=== PATIENT | male | born 1985 | race American Indian/Alaskan Native ===

== ENCOUNTER 2018-04-23 18:37 | Inpatient (IN) | payer OTHER ==
[2018-04-23] MEDS ORDERED: NACL 0.9% 1000 ML 1,000 ML IV ONE ×3 (19:25→23:29)
[2018-04-23] MEDS ORDERED: SUBLIMAZE IV ONE ×2 (19:25→21:41)
[2018-04-23] MEDS ORDERED: BENADRYL IV ONE (19:25)
[2018-04-23] MEDS ORDERED: ZOFRAN IV ONE (19:25)
[2018-04-23 20:23] LABS: Basophils % (Auto) 0.1 % (0.0-1.8); Hematocrit 49.1 % (35.5-45.6); Hemoglobin 16.6 gm/dl (11.8-15.2); Lymphocytes # (Auto) 0.7 K/mm3 (1.2-5.4); Lymphocytes % (Auto) 4.3 % (13.4-35.0); Mean Corpuscular HGB Conc 34 % (32-34); Mean Corpuscular Hemoglobin 30 pg (28-32); Mean Corpuscular Volume 89 fl (84-94); Monocytes # (Auto) 1.9 K/mm3 (0.0-0.8); Monocytes % (Auto) 12.2 % (0.0-7.3); Platelet Count 326 K/mm3 (140-440); Red Blood Count 5.52 M/mm3 (3.65-5.03); Red Cell Distribution Width 13.9 % (13.2-15.2)
--- NOTE | 2018-04-23 20:55 | Emergency Department Report ---
HPI - General Chief Complaint: Abdominal Pain Time Seen by Provider: 04/23/18 19:23 - HPI HPI: The patient is a 32-year-old male with a sniffing history of hepatitis C, who presents for evaluation of abdominal pain. The patient reports left lower quadrant abdominal pain for the past 2 days, crampy in quality, currently 9/10 in severity, exacerbated with movement. The patient denies fever, chills, night sweats, vomiting, diarrhea, blood in the stool, dark tarry stool, dysuria, hematuria, flank pain, genital discharge, inability to pass flatus. ED Past Medical Hx - Past Medical History Previous Medical History?: Yes Hx Hypertension: No Hx CVA: No Hx Heart Attack/AMI: No Hx Congestive Heart Failure: No Hx Diabetes: No Hx Deep Vein Thrombosis: No Hx Pulmonary Embolism: No Hx GERD: Yes Hx Liver Disease: Yes (hep c) Hx Renal Disease: No Hx of Cancer: No Hx Sickle Cell Disease: No Hx Arthritis: No Hx Headaches / Migraines: No Hx Seizures: No Hx Kidney Stones: No Hx Psychiatric Treatment: Yes (bi polar) Hx Asthma: No Hx COPD: No Hx Tuberculosis: No Hx Dementia: No Hx HIV: No - Surgical History Past Surgical History?: No Hx Coronary Stent: No Hx Open Heart Surgery: No Hx Pacemaker: No Hx Internal Defibrillator: No Hx Cholecystectomy: No Hx Appendectomy: No Hx Breast Surgery: No - Social History Smoking Status: Former Smoker Substance Use Type: Cocaine ED Review of Systems ROS: Stated complaint: N/V,ABD PAIN Other details as noted in HPI Constitutional: denies: fever ENT: denies: throat or neck pain Respiratory: denies: cough, shortness of breath Cardiovascular: denies: chest pain Endocrine: denies unexplained weight loss or gain Gastrointestinal: reports: abdominal pain, nausea Genitourinary: denies: dysuria Musculoskeletal: denies: leg swelling Skin: denies: rash Neurological: denies: headache Hematological/Lymphatic: denies: easy bleeding or easy bruising Psych: denies sadness or hopelessness Physical Exam - Physical Exam Vital Signs: Vital Signs 04/23/18 04/23/18 04/23/18 19:09 19:15 19:31 Temperature Pulse Rate 96 H 83 Respiratory 24 16 Rate Blood Pressure 138/91 138/91 Blood Pressure [Right] O2 Sat by Pulse 96 92 Oximetry 04/23/18 04/23/18 04/23/18 19:34 20:07 20:31 Temperature 98.7 F Pulse Rate 80 Respiratory 18 18 18 Rate Blood Pressure 138/91 Blood Pressure 138/91 [Right] O2 Sat by Pulse 100 Oximetry Physical Exam: General: well-nourished, well-developed, no acute distress Head: Normocephalic, atraumatic Eyes: normal sclera ENT: Mucous membranes are pink and moist Neck: trachea midline, neck supple, No neck stiffness, no cervical adenopathy Respiratory: Breath sounds equal bilaterally, no wheezing, rales, or rhonchi Cardio: S1 and S2 present, no murmurs, rubs, gallops, capillary refill is brisk Abdomen: Normoactive bowel sounds, soft abdomen, no rigidity, no guarding or rebound tenderness Chest WALL/Back: No tenderness to palpation of the chest wall, no CVA tenderness with percussion Musc: No pitting edema Skin: No rash Neuro: no facial drooping, normal speech Psych: Normal affect ED Course Vital Signs 04/23/18 04/23/18 04/23/18 19:09 19:15 19:31 Temperature Pulse Rate 96 H 83 Respiratory 24 16 Rate Blood Pressure 138/91 138/91 Blood Pressure [Right] O2 Sat by Pulse 96 92 Oximetry 04/23/18 04/23/18 04/23/18 19:34 20:07 20:31 Temperature 98.7 F Pulse Rate 80 Respiratory 18 18 18 Rate Blood Pressure 138/91 Blood Pressure 138/91 [Right] O2 Sat by Pulse 100 Oximetry ED Medical Decision Making - Lab Data Result diagrams: 04/23/18 20:06 04/23/18 20:06 - Medical Decision Making The patient was seen and examined by myself. The patient is placed on a senior application security consultant and continuous pulse ox. On initial evaluation, the patient was found to be in no distress. Evaluation orders are placed. IV access is established and the patient is given 1 L normal saline fluid bolus and Zofran for nausea, and IV analgesic for pain. Lab results revealed leukocytosis, WBC is 15, and otherwise labs were not concerning including normal LFTs. CT scan of the abdomen and pelvis is obtained. CT scan abdomen and pelvis reveals marked distention of the distal: And mild distention of the small bowel with air -fluid levels, concerning for illeus, as CT negative for identifiable obstruction. The on-call general surgeon Dr. Lubin is contacted. He agrees to consultation and recommends supportive care. The on-call hospitalist Dr. Sarmiento was contacted. She agrees to admit the patient. The admit order was placed. The patient is admitted in guarded condition. Critical care attestation.: If time is entered above; I have spent that time in minutes in the direct care of this critically ill patient, excluding procedure time. ED Disposition Clinical Impression: Acute abdominal pain in left lower quadrant, Ileus, unspecified Disposition: [id number] OP ADMIT IP TO THIS HOSP Is pt being admited?: Yes Does the pt Need Aspirin: Yes Condition: Fair Referrals: PRIMARY CARE, [Primary Care Provider] - 3-5 Days Time of Disposition: 20:58
[2018-04-23 21:11] LABS: Alanine Aminotransferase 146 units/L (7-56); Albumin 4.3 g/dL (3.9-5); BUN/Creatinine Ratio 21; Blood Urea Nitrogen 19 mg/dL (9-20); Calcium 9.6 mg/dL (8.4-10.2); Hemolysis Index 5; Lipase 13 units/L (13-60)
--- NOTE | 2018-04-23 21:34 | Ultrasound Report ---
FINAL REPORT EXAM: US ABDOMEN COMPLETE HISTORY: RUQ abd pain, hx cirrhosis TECHNIQUE: Grayscale the and color-flow imaging of the upper abdomen was performed. Comparison: None FINDINGS: Liver: There is a coarsened echotexture of the liver that corresponds to the patient's history of cirrhosis. Visualization detail of portions of the liver is limited by artifact. A mass within the liver cannot be excluded with this study. There appears to be mild intrahepatic biliary dilatation. The common bile duct is normal caliber (4.3 millimeters). Gallbladder: Moderately distended and appears to contain gallstones in the dependent portion of the gallbladder. The gallbladder wall is normal thickness (1.7 millimeters). There is no demonstration of pericholecystic fluid. Spleen: Normal size and echogenicity. Left kidney: Measures 11.4 centimeters in the maximal craniocaudal dimension. There is an approximately 1.7 centimeter probable cyst in the midpole. There is no demonstration of hydronephrosis, renal calculi or renal mass. Right kidney: Measures 10.5 centimeters in the maximal craniocaudal dimension. There is no demonstration of hydronephrosis, renal calculi or renal mass. Pancreas: Not well visualized due to artifact. There appears to be a right pleural fluid collection. IMPRESSION: 1. The pancreas is not well visualized. 2. Coarsened echotexture of the liver suggestive of hepatocellular disease. Visualization detail of portions of the liver is limited by artifact. A liver mass cannot be excluded with this study. 3. Appearance of mild intrahepatic biliary dilatation. 4. Gallstones within the gallbladder. No ultrasound evidence of acute cholecystitis. 5. Probable cyst left kidney. 6. Possible right pleural fluid collection.
--- NOTE | 2018-04-23 22:29 | Cat Scan Report ---
FINAL REPORT EXAM: CT ABDOMEN PELVIS W CON HISTORY: midline and llq abdominal pain TECHNIQUE: Following IV administration of 100 cc of Omnipaque 300 axial helical imaging was performed through the abdomen and pelvis with sagittal and coronal reformatted images obtained. Comparison: Ultrasound abdomen also performed today FINDINGS: The lung bases are without infiltrate, pneumothorax or pleural fluid collection. The heart is normal size. The liver, spleen, pancreas, kidneys an adrenal glands are normal in appearance. The gallbladder is moderately distended and unremarkable in appearance. There is marked distention of the colon (6.3 centimeters) which contains air, fluid and stool. There is a moderate amount of stool in the sigmoid colon and rectum. There is no evidence of bowel wall thickening, pneumatosis or pericolic inflammatory change. This is most suggestive of an ileus. There is mild distension of the distal small bowel with air-fluid levels which may also represent ileus. The stomach and remainder of the small bowel are normal caliber to decompressed. The appendix is normal caliber. There is no evidence of pneumoperitoneum or free fluid. The abdominal aorta is normal caliber. There are mildly prominent celiac axis and periaortic lymph nodes. The largest lymph node measures approximately 1.5 centimeters in size. The urinary bladder is moderately to markedly distended but otherwise unremarkable. The prostate gland is normal size. The bony structures are unremarkable in appearance. IMPRESSION: 1. Findings suggestive of ileus of the distal ileum and colon. 2. Moderate to marked distention of the urinary bladder. 3. Mildly prominent celiac axis and periaortic lymph nodes.
[2018-04-23 23:15] LABS: Bilirubin,Urine NEG (Negative); Blood,Urine NEG (Negative); Color,Urine Amber (Yellow); Mucus,Urine FEW /HPF; Protein,Urine <15 mg/dL mg/dL (Negative); WBC,Urine < 1.0 /HPF (0.0-6.0)
[2018-04-24] MEDS ORDERED: SODIUM CHLORIDE FLUSH SYRINGE 10 ML IV PRN (00:08)
[2018-04-24] MEDS ORDERED: TYLENOL PO PRN (00:08)
[2018-04-24] MEDS ORDERED: ZOFRAN IV PRN (00:08)
--- NOTE | 2018-04-24 00:11 | History and Physical Report ---
History of Present Illness Date of examination: 04/24/18 History of present illness: 32-year-old male with a history of substance abuse, hepatitis C, bipolar, ADHD comes to emergency room with complaints of nausea vomiting and abdominal pain. Pain is in the left lower quadrant, started 2 days ago, feels like a rock inside abdomen, intermittent every 15 seconds, and intensity 5/10, no radiation discharge had identified exacerbating or relieving factors. Patient is currently at anchor for suicide ideation Review of systems Constitutional: no weight loss, chills, fever Ears, eyes, nose, mouth and throat: no nasal congestion, no nasal discharge, no sinus pressure, no vision change, no red eye. Neck: No neck pain or rigidity. Cardiovascular: no chest pain, palpitations Respiratory: no cough, shortness of breath Gastrointestinal: no hematochezia Genitourinary : no frequency , no hematuria Musculoskeletal: no joint swelling or muscle ache Integumentary: no rash, no pruritis Neurological: no parathesias, no numbness, no focal weakness Endocrine: no cold or heat intolerance, no polyuria or polydipsia Hematologic/Lymphatic: no easy bruising, no easy bleeding, no gland swelling Allergic/Immunologic: no urticaria, no angioedema. PAST MEDICAL HISTORY: substance abuse, hepatitis C, bipolar, ADHD PAST SURGICAL HISTORY: None SOCIAL HISTORY: +alcohol, smoke 1 pack daily, and amphetamine abuse FAMILY HISTORY: Hypertension Medications and Allergies Allergies Allergy/AdvReac Type Severity Reaction Status Date / Time Penicillins Allergy Swelling Verified 04/24/18 00:30 Active Meds: Active Medications Sodium Chloride (Nacl 0.9% 1000 Ml) 1,000 mls @ 125 mls/hr IV ONCE ONE Stop: 04/24/18 07:28 Exam - Physical Exam Narrative exam: Gen. appearance: Patient lying in bed, no apparent distress HEENT: Normocephalic, atraumatic, pupils equally round and reactive to light, extraocular movement intact, and no sclericterus,. No JVD or thyromegaly or nodule,neck supple, no carotid bruit ,mucous membranes moist, no exudate or erythema Heart: S1, S2, regular rate and rhythm Lungs: Clear bilaterally, breathing comfortable Abdomen: Positive bowel sounds, tender left lower quadrant, nondistended, no organomegaly Extremity:no edema cyanosis, clubbing Skin: no rash, dry, warm Neuro: Oriented 3, cranial nerves II-12 intact, speech is fluent, motor and sensory intact - Constitutional Vitals: Temp Pulse Resp BP Pulse Ox 98.7 F 86 18 145/88 100 04/23/18 19:34 04/23/18 22:00 04/23/18 22:06 04/23/18 22:00 04/23/18 22:05 Results - Labs CBC & Chem 7: 04/23/18 20:06 04/23/18 20:06 Labs: Abnormal lab results 04/23/18 04/23/18 Range/Units 20:06 20:06 WBC 15.6 H (4.5-11.0) K/mm3 RBC 5.52 H (3.65-5.03) M/mm3 Hgb 16.6 H (11.8-15.2) gm/dl Hct 49.1 H (35.5-45.6) % Lymph % (Auto) 4.3 L (13.4-35.0) % [place] % (Auto) 12.2 H (0.0-7.3) % Lymph # 0.7 L (1.2-5.4) K/mm3 [place] # 1.9 H (0.0-0.8) K/mm3 Seg Neutrophils % 83.4 H (40.0-70.0) % Seg Neutrophils # 13.0 H (1.8-7.7) K/mm3 Chloride 94.3 L (98-107) mmol/L Glucose 147 H (75-100) mg/dL AST 91 H (5-40) units/L ALT 146 H (7-56) units/L Total Protein 8.4 H (6.3-8.2) g/dL - Imaging and Cardiology CT scan - abdomen: report reviewed CT scan - pelvis: report reviewed Assessment and Plan Assessment Ileus is likely secondary to methamphetamine withdrawal Suicide ideation Stress-induced leukocytosis Bipolar Hepatitis C ADHD Plan Admit medicine Start IV fluid, Percocet for pain, surgical consult Place on 1013 DVT prophylaxis
[2018-04-24] MEDS: NACL 0.9% 1000 ML 1,000 ML IV SCH ×2 (05:03→14:29)
[2018-04-24] MEDS ORDERED: LOVENOX SUB-Q SCH (10:00)
--- NOTE | 2018-04-24 10:29 | Consultation ---
History of Present Illness Consult date: 04/24/18 Reason for consult: abdominal pain Requesting physician: ANKIT LOPEZ Chief complaint: abdominal pain - History of present illness History of present illness: 32-year-old male presented to the emergency room last night with complaints of abdominal pain. He was transferred [facility] for recent suicidal ideation. Patient reports that about 5 days ago he was admitted to [facility]. After admission he reported abdominal pain that they try to manage conservatively. Ultimately, they ended up transferring him to the emergency department. General surgery was consult for further evaluation and management. Patient reports that he has not had a bowel movement in a number of days. Denies any nausea/vomiting. Denies any fevers or chills. Most of his pain is in the pelvic area but he does have a lot of pain in both flanks. Patient is hungry and would like to eat. Past History Past Medical History: hepatitis, other (substance abuse, hepatitis C, bipolar, ADHD ) Past Surgical History: No surgical history Social history: smoking, alcohol abuse, other (meth use) Family history: hypertension Medications and Allergies Allergies Allergy/AdvReac Type Severity Reaction Status Date / Time Penicillins Allergy Swelling Verified 04/24/18 00:30 Active Meds: Active Medications Acetaminophen (Tylenol) 650 mg PO Q4H PRN PRN Reason: Pain MILD(1-3)/Fever >100.5/CARTAGENA Enoxaparin Sodium (Lovenox) 40 mg SUB-Q QDAY@1000 KATHY Sodium Chloride (Nacl 0.9% 1000 Ml) 1,000 mls @ 125 mls/hr IV DIRECT KATHY Last Admin: 04/24/18 05:03 Dose: 125 mls/hr Mineral Oil (Fleet Mineral Oil) 133 ml [place] ONCE ONE Stop: 04/24/18 10:04 Ondansetron HCl (Zofran) 4 mg IV Q8H PRN PRN Reason: Nausea And Vomiting Oxycodone/Acetaminophen (Percocet 5/325) 1 tab PO Q6H PRN PRN Reason: Pain, Moderate (4-6) Senna (Senokot) 17.2 mg PO BID KATHY Sodium Chloride (Sodium Chloride Flush Syringe 10 Ml) 10 ml IV BID KATHY Sodium Chloride (Sodium Chloride Flush Syringe 10 Ml) 10 ml IV PRN PRN PRN Reason: LINE FLUSH Review of Systems - Constitutional weakness, no fever, no chills - Cardiovascular no chest pain, no rapid/irregular heart beat - Respiratory no cough, no shortness of breath - Gastrointestinal abdominal pain, constipation, dyspepsia/bloating, no nausea, no vomiting, no diarrhea, no hematemesis, no coffee ground emesis, no BRBPR, no melena, no hematochezia - Genitourinary flank pain, urinary retention - Integumentary no sores, no wounds - Psychiatric suicidal ideation, depression, sadness/tearfullness Exam Vital Signs Pulse Ox 96 04/23/18 19:09 - General physical appearance Positive: no distress, other (appears in mild discomfort.) - Eyes Positive: PERRL, normal occular movement - Respiratory Positive: normal expansion, normal respiratory effort, clear to auscultation - Cardiovascular Rhythm: regular - Abdomen Abdomen: Present: soft, tender (generalized. not an acute abdomen), bowel sounds normal. Absent: distended, guarding, rigid, surgical scars - Integumentary no rash, no growths, no abnormal pigmentation - Neurologic Neurologic: alert and oriented to time, place and person, motor strength and sensation are grossly intact - Psychiatric Psychiatric: appropriate mood/affect, cooperative Results - Labs 04/23/18 20:06 04/23/18 20:06 Abnormal lab results 04/23/18 04/23/18 Range/Units 20:06 20:06 WBC 15.6 H (4.5-11.0) K/mm3 RBC 5.52 H (3.65-5.03) M/mm3 Hgb 16.6 H (11.8-15.2) gm/dl Hct 49.1 H (35.5-45.6) % Lymph % (Auto) 4.3 L (13.4-35.0) % [place] % (Auto) 12.2 H (0.0-7.3) % Lymph # 0.7 L (1.2-5.4) K/mm3 [place] # 1.9 H (0.0-0.8) K/mm3 Seg Neutrophils % 83.4 H (40.0-70.0) % Seg Neutrophils # 13.0 H (1.8-7.7) K/mm3 Chloride 94.3 L (98-107) mmol/L Glucose 147 H (75-100) mg/dL AST 91 H (5-40) units/L ALT 146 H (7-56) units/L Total Protein 8.4 H (6.3-8.2) g/dL Diabetes panel 04/23/18 Range/Units 20:06 Sodium 140 (137-145) mmol/L Potassium 4.4 (3.6-5.0) mmol/L Chloride 94.3 L (98-107) mmol/L Carbon Dioxide 30 (22-30) mmol/L BUN 19 (9-20) mg/dL Creatinine 0.9 (0.8-1.5) mg/dL Glucose 147 H (75-100) mg/dL Calcium 9.6 (8.4-10.2) mg/dL AST 91 H (5-40) units/L ALT 146 H (7-56) units/L Alkaline Phosphatase 99 (35-129) units/L Total Protein 8.4 H (6.3-8.2) g/dL Albumin 4.3 (3.9-5) g/dL Calcium panel 04/23/18 Range/Units 20:06 Calcium 9.6 (8.4-10.2) mg/dL Albumin 4.3 (3.9-5) g/dL Pituitary panel 04/23/18 Range/Units 20:06 Sodium 140 (137-145) mmol/L Potassium 4.4 (3.6-5.0) mmol/L Chloride 94.3 L (98-107) mmol/L Carbon Dioxide 30 (22-30) mmol/L BUN 19 (9-20) mg/dL Creatinine 0.9 (0.8-1.5) mg/dL Glucose 147 H (75-100) mg/dL Calcium 9.6 (8.4-10.2) mg/dL Adrenal panel 04/23/18 Range/Units 20:06 Sodium 140 (137-145) mmol/L Potassium 4.4 (3.6-5.0) mmol/L Chloride 94.3 L (98-107) mmol/L Carbon Dioxide 30 (22-30) mmol/L BUN 19 (9-20) mg/dL Creatinine 0.9 (0.8-1.5) mg/dL Glucose 147 H (75-100) mg/dL Calcium 9.6 (8.4-10.2) mg/dL Total Bilirubin 0.30 (0.1-1.2) mg/dL AST 91 H (5-40) units/L ALT 146 H (7-56) units/L Alkaline Phosphatase 99 (35-129) units/L Total Protein 8.4 H (6.3-8.2) g/dL Albumin 4.3 (3.9-5) g/dL - Imaging CT scan - abdomen: report reviewed, image reviewed CT scan - pelvis: report reviewed, image reviewed Assessment and Plan - Patient Problems (1) Urinary retention Current Visit: Yes Status: Acute Plan to address problem: Pt stable. Patient has marked bladder distention on CT scan as well as fullness and tenderness on exam. Patient requires placement of Ga catheter to resolve the issue. This is been explained to the patient. Ga will need to stay in for at least 72 hours. Discussed all plans with nurse and Dr. Mason. Time=30min (2) Constipation Current Visit: Yes Status: Acute Plan to address problem: Pt stable. Pt has significant stool accumulation in recto-sigmoid area. Pt in need of clean out. As the proximal colon is dilated with fluid, I will begin with enemas and senna for today. After we begin to clear some of the stool out, then I will consider the need for additional PO meds. Will check KUB in AM. Ok to have clear liquid diet. (3) Dehydration Current Visit: Yes Status: Acute Plan to address problem: Pt is markedly dehdyrated which may account for some of the leukocytosis. Agree with IV hydration. May need further boluses. Labs in AM.
[2018-04-24] MEDS: PERCOCET 5/325 PO PRN ×3 (11:00→21:58)
[2018-04-24] MEDS ORDERED: FLEET MINERAL OIL PR ONE (12:00)
[2018-04-24] MEDS: SENOKOT PO SCH ×2 (12:12→21:58)
[2018-04-24] MEDS: LOVENOX SUB-Q SCH (12:12)
[2018-04-24] MEDS: SODIUM CHLORIDE FLUSH SYRINGE 10 ML IV SCH ×2 (12:13→22:00)
--- NOTE | 2018-04-24 12:23 | Progress Note ---
Assessment and Plan Assessment and plan: SIRS. Patient with leukocytosis and tachycardia on admission. No evidence of infection at this time. Leukocytosis. Etiology likely stress-induced and related to the dehydration. Continue to monitor CBC. Urinary retention. Patient has marked bladder distention on CT scan as well as fullness and tenderness on exam. Continue with Ga for now. Constipation. Continue with enemas and senna per surgery recommendations. Ileus. Etiology secondary to urinary retention and constipation. No jessica obstruction. Follow-up KUB in a.m. Surgery following. Suicidal ideation. Psychiatry consultation. Bipolar disorder. Per psychiatry. Hepatitis C. ADHD. History Interval history: No new issues overnight. Hospitalist Physical - Constitutional Vitals: Temp Pulse Resp BP Pulse Ox 98.4 F 82 16 110/60 98 04/24/18 08:03 04/24/18 08:03 04/24/18 08:03 04/24/18 08:03 04/24/18 08:03 General appearance: Present: no acute distress, well-nourished - EENT Eyes: Present: PERRL, EOM intact ENT: hearing intact, clear oral mucosa, dentition normal - Neck Neck: Present: supple, normal ROM - Respiratory Respiratory effort: normal Respiratory: bilateral: CTA - Cardiovascular Rhythm: regular Heart Sounds: Present: S1 & S2. Absent: gallop, rub - Extremities Extremities: no ischemia, No edema, Full ROM - Abdominal General gastrointestinal: soft, non-tender, non-distended, normal bowel sounds - Integumentary Integumentary: Present: clear, warm, dry - Neurologic Neurologic: CNII-XII intact, moves all extremities Results - Labs CBC & Chem 7: 04/23/18 20:06 04/23/18 20:06 Labs: Laboratory Last Values WBC 15.6 K/mm3 (4.5-11.0) H 04/23/18 20:06 RBC 5.52 M/mm3 (3.65-5.03) H 04/23/18 20:06 Hgb 16.6 gm/dl (11.8-15.2) H 04/23/18 20:06 Hct 49.1 % (35.5-45.6) H 04/23/18 20:06 MCV 89 fl (84-94) 04/23/18 20:06 MCH 30 pg (28-32) 04/23/18 20:06 MCHC 34 % (32-34) 04/23/18 20:06 RDW 13.9 % (13.2-15.2) 04/23/18 20:06 Plt Count 326 K/mm3 (140-440) 04/23/18 20:06 Lymph % (Auto) 4.3 % (13.4-35.0) L 04/23/18 20:06 [place] % (Auto) 12.2 % (0.0-7.3) H 04/23/18 20:06 Eos % (Auto) 0.0 % (0.0-4.3) 04/23/18 20:06 Baso % (Auto) 0.1 % (0.0-1.8) 04/23/18 20:06 Lymph # 0.7 K/mm3 (1.2-5.4) L 04/23/18 20:06 [place] # 1.9 K/mm3 (0.0-0.8) H 04/23/18 20:06 Eos # 0.0 K/mm3 (0.0-0.4) 04/23/18 20:06 Baso # 0.0 K/mm3 (0.0-0.1) 04/23/18 20:06 Seg Neutrophils % 83.4 % (40.0-70.0) H 04/23/18 20:06 Seg Neutrophils # 13.0 K/mm3 (1.8-7.7) H 04/23/18 20:06 Sodium 140 mmol/L (137-145) 04/23/18 20:06 Potassium 4.4 mmol/L (3.6-5.0) 04/23/18 20:06 Chloride 94.3 mmol/L (98-107) L 04/23/18 20:06 Carbon Dioxide 30 mmol/L (22-30) 04/23/18 20:06 Anion Gap 20 mmol/L 04/23/18 20:06 BUN 19 mg/dL (9-20) 04/23/18 20:06 Creatinine 0.9 mg/dL (0.8-1.5) 04/23/18 20:06 Estimated GFR > 60 ml/min 04/23/18 20:06 BUN/Creatinine Ratio 21 % 04/23/18 20:06 Glucose 147 mg/dL (75-100) H 04/23/18 20:06 Calcium 9.6 mg/dL (8.4-10.2) 04/23/18 20:06 Total Bilirubin 0.30 mg/dL (0.1-1.2) 04/23/18 20:06 AST 91 units/L (5-40) H 04/23/18 20:06 ALT 146 units/L (7-56) H 04/23/18 20:06 Alkaline Phosphatase 99 units/L (35-129) 04/23/18 20:06 Total Protein 8.4 g/dL (6.3-8.2) H 04/23/18 20:06 Albumin 4.3 g/dL (3.9-5) 04/23/18 20:06 Albumin/Globulin Ratio 1.0 % 04/23/18 20:06 Lipase 13 units/L (13-60) 04/23/18 20:06 Urine Color [place] (Yellow) 04/23/18 22:04 Urine Turbidity Clear (Clear) 04/23/18 22:04 Urine pH 6.0 (5.0-7.0) 04/23/18 22:04 Ur Specific [place] 1.024 (1.003-1.030) 04/23/18 22:04 Urine Protein <15 mg/dl mg/dL (Negative) 04/23/18 22:04 Urine Glucose (UA) Neg mg/dL (Negative) 04/23/18 22:04 Urine Ketones Neg mg/dL (Negative) 04/23/18 22:04 Urine Blood Neg (Negative) 04/23/18 22:04 Urine Nitrite Neg (Negative) 04/23/18 22:04 Urine Bilirubin Neg (Negative) 04/23/18 22:04 Urine Urobilinogen 2.0 mg/dL (<2.0) 04/23/18 22:04 Ur Leukocyte Esterase Neg (Negative) 04/23/18 22:04 Urine WBC (Auto) < 1.0 /HPF (0.0-6.0) 04/23/18 22:04 Urine RBC (Auto) 3.0 /HPF (0.0-6.0) 04/23/18 22:04 Urine Mucus Few /HPF 04/23/18 22:04 Plasma/Serum Alcohol < 0.01 % (0-0.07) 04/23/18 20:06
--- NOTE | 2018-04-25 09:09 | XRay Report ---
AP ABDOMEN: HISTORY: Reassess colon dilatation. The abdominal gas pattern is unremarkable. No masses or organomegaly is identified and there is no gross evidence of free air or fluid. No significant soft tissue calcifications are noted. IMPRESSION: Unremarkable abdomen. The borderline dilated and fluid-filled colon has apparently resolved since the CT performed 2 days ago.
--- NOTE | 2018-04-25 09:49 | Progress Note ---
Assessment and Plan Assessment and plan: Ileus. Etiology secondary to urinary retention and constipation. No jessica obstruction. Follow-up KUB Surgery following. SIRS. Patient with leukocytosis and tachycardia on admission. No evidence of infection at this time. Leukocytosis. Etiology likely stress-induced and related to the dehydration. Continue to monitor CBC. Urinary retention. Patient has marked bladder distention on CT scan as well as fullness and tenderness on exam. Continue with Ga for now. Constipation. Continue with enemas and senna per surgery recommendations. Suicidal ideation. Psychiatry consultation pending. Bipolar disorder. Per psychiatry. Hepatitis C. ADHD. History Interval history: No new issues overnight. Hospitalist Physical - Constitutional Vitals: Temp Pulse Resp BP Pulse Ox 98.9 F 64 18 101/55 94 04/25/18 05:42 04/25/18 05:42 04/25/18 05:42 04/25/18 05:42 04/25/18 05:42 General appearance: Present: no acute distress, well-nourished - EENT Eyes: Present: PERRL, EOM intact ENT: hearing intact, clear oral mucosa, dentition normal - Neck Neck: Present: supple, normal ROM - Respiratory Respiratory effort: normal Respiratory: bilateral: CTA - Cardiovascular Rhythm: regular Heart Sounds: Present: S1 & S2. Absent: gallop, rub - Extremities Extremities: no ischemia, No edema, Full ROM - Abdominal General gastrointestinal: soft, non-tender, non-distended, normal bowel sounds - Integumentary Integumentary: Present: clear, warm, dry - Neurologic Neurologic: CNII-XII intact, moves all extremities Results - Labs CBC & Chem 7: 04/23/18 20:06 04/23/18 20:06 Labs: Laboratory Last Values WBC 15.6 K/mm3 (4.5-11.0) H 04/23/18 20:06 RBC 5.52 M/mm3 (3.65-5.03) H 04/23/18 20:06 Hgb 16.6 gm/dl (11.8-15.2) H 04/23/18 20:06 Hct 49.1 % (35.5-45.6) H 04/23/18 20:06 MCV 89 fl (84-94) 04/23/18 20:06 MCH 30 pg (28-32) 04/23/18 20:06 MCHC 34 % (32-34) 04/23/18 20:06 RDW 13.9 % (13.2-15.2) 04/23/18 20:06 Plt Count 326 K/mm3 (140-440) 04/23/18 20:06 Lymph % (Auto) 4.3 % (13.4-35.0) L 04/23/18 20:06 [place] % (Auto) 12.2 % (0.0-7.3) H 04/23/18 20:06 Eos % (Auto) 0.0 % (0.0-4.3) 04/23/18 20:06 Baso % (Auto) 0.1 % (0.0-1.8) 04/23/18 20:06 Lymph # 0.7 K/mm3 (1.2-5.4) L 04/23/18 20:06 [place] # 1.9 K/mm3 (0.0-0.8) H 04/23/18 20:06 Eos # 0.0 K/mm3 (0.0-0.4) 04/23/18 20:06 Baso # 0.0 K/mm3 (0.0-0.1) 04/23/18 20:06 Seg Neutrophils % 83.4 % (40.0-70.0) H 04/23/18 20:06 Seg Neutrophils # 13.0 K/mm3 (1.8-7.7) H 04/23/18 20:06 Sodium 140 mmol/L (137-145) 04/23/18 20:06 Potassium 4.4 mmol/L (3.6-5.0) 04/23/18 20:06 Chloride 94.3 mmol/L (98-107) L 04/23/18 20:06 Carbon Dioxide 30 mmol/L (22-30) 04/23/18 20:06 Anion Gap 20 mmol/L 04/23/18 20:06 BUN 19 mg/dL (9-20) 04/23/18 20:06 Creatinine 0.9 mg/dL (0.8-1.5) 04/23/18 20:06 Estimated GFR > 60 ml/min 04/23/18 20:06 BUN/Creatinine Ratio 21 % 04/23/18 20:06 Glucose 147 mg/dL (75-100) H 04/23/18 20:06 Calcium 9.6 mg/dL (8.4-10.2) 04/23/18 20:06 Total Bilirubin 0.30 mg/dL (0.1-1.2) 04/23/18 20:06 AST 91 units/L (5-40) H 04/23/18 20:06 ALT 146 units/L (7-56) H 04/23/18 20:06 Alkaline Phosphatase 99 units/L (35-129) 04/23/18 20:06 Total Protein 8.4 g/dL (6.3-8.2) H 04/23/18 20:06 Albumin 4.3 g/dL (3.9-5) 04/23/18 20:06 Albumin/Globulin Ratio 1.0 % 04/23/18 20:06 Lipase 13 units/L (13-60) 04/23/18 20:06 Urine Color [place] (Yellow) 04/23/18 22:04 Urine Turbidity Clear (Clear) 04/23/18 22:04 Urine pH 6.0 (5.0-7.0) 04/23/18 22:04 Ur Specific [place] 1.024 (1.003-1.030) 04/23/18 22:04 Urine Protein <15 mg/dl mg/dL (Negative) 04/23/18 22:04 Urine Glucose (UA) Neg mg/dL (Negative) 04/23/18 22:04 Urine Ketones Neg mg/dL (Negative) 04/23/18 22:04 Urine Blood Neg (Negative) 04/23/18 22:04 Urine Nitrite Neg (Negative) 04/23/18 22:04 Urine Bilirubin Neg (Negative) 04/23/18 22:04 Urine Urobilinogen 2.0 mg/dL (<2.0) 04/23/18 22:04 Ur Leukocyte Esterase Neg (Negative) 04/23/18 22:04 Urine WBC (Auto) < 1.0 /HPF (0.0-6.0) 04/23/18 22:04 Urine RBC (Auto) 3.0 /HPF (0.0-6.0) 04/23/18 22:04 Urine Mucus Few /HPF 04/23/18 22:04 Plasma/Serum Alcohol < 0.01 % (0-0.07) 04/23/18 20:06
--- NOTE | 2018-04-25 10:15 | Progress Note ---
Assessment and Plan - Patient Problems (1) Urinary retention Current Visit: Yes Status: Acute Plan to address problem: Pt stable. Feels better after bladder drained. Needs to stay for at least 72 hours. Can try removal on Monday. Would document post-void residual after catheter removed. Please call with questions. time=10min (2) Constipation Current Visit: Yes Status: Acute Plan to address problem: Much improved after enema. cont senna. Abdominal pain essentially resolved. X- ray normal today. - advance to regular diet (3) Dehydration Current Visit: Yes Status: Acute Plan to address problem: Still reports thirst. Would continue IVF for 1 more day and encourage PO intake today. Subjective Date of service: 04/25/18 Patient Reports: Positive: feels better, pain is less, tolerating liquids well, bowel movement (had good BM after enema). Negative: nausea, vomiting Narrative: he is very hungry Objective Vital Signs - 12hr 04/24/18 04/25/18 22:58 05:42 Temperature 98.9 F Pulse Rate 64 Respiratory 20 18 Rate Blood Pressure 101/55 [Left] O2 Sat by Pulse 94 Oximetry - General physical appearance no distress, no pain, other (looks much better) - Respiratory normal expansion, normal respiratory effort - Abdomen soft, not tender (very minimal), not distended, not guarding, not rigid - Psychiatric oriented to time, oriented to person, oriented to place, speech is normal, memory intact - Labs 04/23/18 20:06 04/23/18 20:06 - Imaging Abdominal x-ray: report reviewed, image reviewed
[2018-04-25] MEDS: SENOKOT PO SCH ×2 (10:59→21:33)
[2018-04-25] MEDS: PERCOCET 5/325 PO PRN ×2 (10:59→18:07)
[2018-04-25] MEDS: LOVENOX SUB-Q SCH (11:00)
[2018-04-25] MEDS: SODIUM CHLORIDE FLUSH SYRINGE 10 ML IV SCH ×2 (11:00→21:33)
[2018-04-25 15:43] LABS: Basophils % (Auto) 0.5 % (0.0-1.8); Eosinophils # (Auto) 0.1 K/mm3 (0.0-0.4); Eosinophils % (Auto) 1.7 % (0.0-4.3); Hematocrit 39.7 % (35.5-45.6); Hemoglobin 13.5 gm/dl (11.8-15.2); Lymphocytes # (Auto) 1.9 K/mm3 (1.2-5.4); Lymphocytes % (Auto) 27.1 % (13.4-35.0); Mean Corpuscular HGB Conc 34 % (32-34); Mean Corpuscular Hemoglobin 30 pg (28-32); Mean Corpuscular Volume 89 fl (84-94); Monocytes # (Auto) 0.7 K/mm3 (0.0-0.8); Monocytes % (Auto) 10.1 % (0.0-7.3); Platelet Count 250 K/mm3 (140-440); Red Blood Count 4.47 M/mm3 (3.65-5.03)
[2018-04-25 15:55] LABS: BUN/Creatinine Ratio 16; Blood Urea Nitrogen 11 mg/dL (9-20); Calcium 8.7 mg/dL (8.4-10.2); Hemolysis Index 7
--- NOTE | 2018-04-25 17:15 | Consultation ---
History of Present Illness - Reason for Consult Consult date: 04/25/18 Reason for consult: Initial Psychiatric Evaluation - Chief Complaint Chief complaint: "I tried to kill myself" - History of Present Psychiatric Illness Patient is a 32-year-old male that presents to the emergency room from [facility] with complaints of nausea, vomiting, and abdominal pain. Pain is in the left lower quadrant x 2 days. He has a PMH of substance abuse , hepatitis C, bipolar, and ADHD. Patient was admitted to [facility] for a suicide attempt via overdose (Tylenol PM). Patient reports that his depression has been exacerbated by his family dynamics. Currently, patient is caring for his terminally ill mother and his older brother was recently sentence to 2 years in intermediate. He reports that he feels overwhelmed. He reports decrease sleep , decrease appetite, decrease energy, and being easily irritated/agitated. He continues to have suicidal ideations. He reports " next time I plan to hang myself or get a gun." In addition patient has intermittent paranoid thoughts. He denies A/VH's. Current Psychiatric Medications: Seroquel 300mg po QHS, Prozac 40mg po QAM, Buspar ( dose unknown). Past Psychiatric History: Bipolar (2012); More than 10 previous inpatient psychiatric hospitalizations; No outpatient psychiatrist; 7 to 8 previous suicide attempts ( overdosing and cutting self) Past Psychiatric Medication Trials: Suboxone- effective History of Trauma/Abuse: Patient denies sexual, physical, and mental abuse. Drug/Alcohol Abuse: Opioid (heroin)- 1 gram/daily, method-IV, last use- approx- 1 week ago, first use- 4 to 5 years ago; Methamphetamine- 1 gram/daily, method- IV use, approximately- 1 week ago, 1st use- 4 to 5 years Social History: High School Diploma; no source of income; poor support system; 1 son ( 13 years old); lives with mother. Family History: Mother- " she has mental issues" Medications and Allergies Allergies Allergy/AdvReac Type Severity Reaction Status Date / Time Penicillins Allergy Swelling Verified 04/24/18 00:30 Active Meds: Active Medications Acetaminophen (Tylenol) 650 mg PO Q4H PRN PRN Reason: Pain MILD(1-3)/Fever >100.5/CARTAGENA Enoxaparin Sodium (Lovenox) 40 mg SUB-Q QDAY@1000 KATHY Last Admin: 04/25/18 11:00 Dose: 40 mg Sodium Chloride (Nacl 0.9% 1000 Ml) 1,000 mls @ 125 mls/hr IV DIRECT [facility] Last Admin: 04/24/18 14:29 Dose: 125 mls/hr Ondansetron HCl (Zofran) 4 mg IV Q8H PRN PRN Reason: Nausea And Vomiting Oxycodone/Acetaminophen (Percocet 5/325) 1 tab PO Q6H PRN PRN Reason: Pain, Moderate (4-6) Last Admin: 04/25/18 10:59 Dose: 1 tab Senna (Senokot) 17.2 mg PO BID [facility] Last Admin: 04/25/18 10:59 Dose: 17.2 mg Sodium Chloride (Sodium Chloride Flush Syringe 10 Ml) 10 ml IV BID [facility] Last Admin: 04/25/18 11:00 Dose: 10 ml Sodium Chloride (Sodium Chloride Flush Syringe 10 Ml) 10 ml IV PRN PRN PRN Reason: LINE FLUSH Mental Status Exam - Vital signs Last Vital Signs Temp 98.7 F 04/25/18 16:23 Pulse 64 04/25/18 05:42 Resp 16 04/25/18 16:23 BP 116/79 04/25/18 16:22 Pulse Ox 94 04/25/18 05:42 - Exam Narrative exam: Mental Status Exam General Appearance: Causally Dressed-hospital gown Eye Contact: Intermittent Orientation: Alert and oriented x 4 ( person, place, time, and situation) Attitude/Behavior: Cooperative Sensorium: Clear Psychomotor & Musculoskeletal Activity: Laying in bed Mood: "Depressed" Affect: Congruent with mood Speech/Language: Normal rate and tone Thought Processes: Circumstantial Thought Content: Reality oriented; intermittent paranoid thoughts Perception: WNL-patient denies A/V/T hallucinations Concentration/Attention: Impaired Suicidal Ideations/Plan: + suicidal ideations to hang self or shoot self Homicidal Ideations/Plan: Patient denies HI's Judgment: Poor Insight: Poor Results Result Diagrams: 04/25/18 15:17 04/25/18 15:17 Abnormal lab results 04/25/18 04/25/18 Range/Units 15:17 15:17 Real % (Auto) 10.1 H (0.0-7.3) % Creatinine 0.7 L (0.8-1.5) mg/dL Glucose 110 H (75-100) mg/dL All other labs normal. Assessment and Plan Assessment and plan: Impression: PPHx Bipolar Disorder. Today patient presents cooperative and calm during the assessment. He endorses depressed mood, intermittent paranoia, and SI 's with plan to hang self or shoot himself. He denies HI's and A/VH's. Recommendation/Plan: 1. Continue 1013 with placement to inpatient psychiatric services. 2. Start Seroquel 300mg po QHS mood, Prozac 40mg po QAM depression/anxiety, Buspar 7.5mg po BID anxiety, and Ativan 0.5mg po Q daily PRN for anxiety/ agitation; Discussed metabolic side effects of Seroquel and increase suicidality of Prozac. 3. Will monitor mood, psychosis, sleep, appetite, compliance, and side effects. 09iu
[2018-04-25] MEDS: NACL 0.9% 1000 ML 1,000 ML IV SCH (18:08)
[2018-04-25] MEDS: BUSPAR PO SCH (22:19)
[2018-04-26] MEDS: NACL 0.9% 1000 ML 1,000 ML IV SCH (03:51)
[2018-04-26] MEDS: SENOKOT PO SCH ×2 (09:27→22:40)
[2018-04-26] MEDS: PROzac PO SCH (09:27)
[2018-04-26] MEDS: LOVENOX SUB-Q SCH (09:28)
[2018-04-26] MEDS: BUSPAR PO SCH ×2 (09:28→22:41)
[2018-04-26] MEDS: SODIUM CHLORIDE FLUSH SYRINGE 10 ML IV SCH ×2 (09:28→22:42)
--- NOTE | 2018-04-26 11:12 | Progress Note ---
Assessment and Plan Assessment and plan: Ileus. Etiology secondary to urinary retention and constipation. No jessica obstruction. Follow-up KUB Surgery following. SIRS. Patient with leukocytosis and tachycardia on admission. No evidence of infection at this time. Leukocytosis. Etiology likely stress-induced and related to the dehydration. Continue to monitor CBC. Urinary retention. Patient has marked bladder distention on CT scan as well as fullness and tenderness on exam. Continue with Ga for now and likely TDC NAM.. Constipation. Continue with enemas and senna per surgery recommendations. Suicidal ideation. Psychiatry consultation pending. Bipolar disorder. Per psychiatry. Hepatitis C. ADHD. Disposition. Anticipate discharge back to psych facility if bed available and patient voiding without any issues. History Interval history: No new issues overnight. Hospitalist Physical - Constitutional Vitals: Temp Pulse Resp BP Pulse Ox 98.1 F 45 L 18 97/57 97 04/26/18 06:00 04/26/18 06:00 04/26/18 06:00 04/26/18 06:00 04/26/18 09:28 General appearance: Present: no acute distress, well-nourished - EENT Eyes: Present: PERRL, EOM intact ENT: hearing intact, clear oral mucosa, dentition normal - Neck Neck: Present: supple, normal ROM - Respiratory Respiratory effort: normal Respiratory: bilateral: CTA - Cardiovascular Rhythm: regular Heart Sounds: Present: S1 & S2. Absent: gallop, rub - Extremities Extremities: no ischemia, No edema, Full ROM - Abdominal General gastrointestinal: soft, non-tender, non-distended, normal bowel sounds - Integumentary Integumentary: Present: clear, warm, dry - Neurologic Neurologic: CNII-XII intact, moves all extremities Results - Labs CBC & Chem 7: 04/25/18 15:17 04/25/18 15:17 Labs: Laboratory Last Values WBC 7.0 K/mm3 (4.5-11.0) 04/25/18 15:17 RBC 4.47 M/mm3 (3.65-5.03) 04/25/18 15:17 Hgb 13.5 gm/dl (11.8-15.2) D 04/25/18 15:17 Hct 39.7 % (35.5-45.6) D 04/25/18 15:17 MCV 89 fl (84-94) 04/25/18 15:17 MCH 30 pg (28-32) 04/25/18 15:17 MCHC 34 % (32-34) 04/25/18 15:17 RDW 14.0 % (13.2-15.2) 04/25/18 15:17 Plt Count 250 K/mm3 (140-440) 04/25/18 15:17 Lymph % (Auto) 27.1 % (13.4-35.0) 04/25/18 15:17 [place] % (Auto) 10.1 % (0.0-7.3) H 04/25/18 15:17 Eos % (Auto) 1.7 % (0.0-4.3) 04/25/18 15:17 Baso % (Auto) 0.5 % (0.0-1.8) 04/25/18 15:17 Lymph # 1.9 K/mm3 (1.2-5.4) 04/25/18 15:17 [place] # 0.7 K/mm3 (0.0-0.8) 04/25/18 15:17 Eos # 0.1 K/mm3 (0.0-0.4) 04/25/18 15:17 Baso # 0.0 K/mm3 (0.0-0.1) 04/25/18 15:17 Seg Neutrophils % 60.6 % (40.0-70.0) 04/25/18 15:17 Seg Neutrophils # 4.2 K/mm3 (1.8-7.7) 04/25/18 15:17 Sodium 138 mmol/L (137-145) 04/25/18 15:17 Potassium 4.2 mmol/L (3.6-5.0) 04/25/18 15:17 Chloride 100.6 mmol/L (98-107) 04/25/18 15:17 Carbon Dioxide 28 mmol/L (22-30) 04/25/18 15:17 Anion Gap 14 mmol/L 04/25/18 15:17 BUN 11 mg/dL (9-20) 04/25/18 15:17 Creatinine 0.7 mg/dL (0.8-1.5) L 04/25/18 15:17 Estimated GFR > 60 ml/min 04/25/18 15:17 BUN/Creatinine Ratio 16 % 04/25/18 15:17 Glucose 110 mg/dL (75-100) H 04/25/18 15:17 Calcium 8.7 mg/dL (8.4-10.2) 04/25/18 15:17 Total Bilirubin 0.30 mg/dL (0.1-1.2) 04/23/18 20:06 AST 91 units/L (5-40) H 04/23/18 20:06 ALT 146 units/L (7-56) H 04/23/18 20:06 Alkaline Phosphatase 99 units/L (35-129) 04/23/18 20:06 Total Protein 8.4 g/dL (6.3-8.2) H 04/23/18 20:06 Albumin 4.3 g/dL (3.9-5) 04/23/18 20:06 Albumin/Globulin Ratio 1.0 % 04/23/18 20:06 Lipase 13 units/L (13-60) 04/23/18 20:06 Urine Color [place] (Yellow) 04/23/18 22:04 Urine Turbidity Clear (Clear) 04/23/18 22:04 Urine pH 6.0 (5.0-7.0) 04/23/18 22:04 Ur Specific [place] 1.024 (1.003-1.030) 04/23/18 22:04 Urine Protein <15 mg/dl mg/dL (Negative) 04/23/18 22:04 Urine Glucose (UA) Neg mg/dL (Negative) 04/23/18 22:04 Urine Ketones Neg mg/dL (Negative) 04/23/18 22:04 Urine Blood Neg (Negative) 04/23/18 22:04 Urine Nitrite Neg (Negative) 04/23/18 22:04 Urine Bilirubin Neg (Negative) 04/23/18 22:04 Urine Urobilinogen 2.0 mg/dL (<2.0) 04/23/18 22:04 Ur Leukocyte Esterase Neg (Negative) 04/23/18 22:04 Urine WBC (Auto) < 1.0 /HPF (0.0-6.0) 04/23/18 22:04 Urine RBC (Auto) 3.0 /HPF (0.0-6.0) 04/23/18 22:04 Urine Mucus Few /HPF 04/23/18 22:04 Plasma/Serum Alcohol < 0.01 % (0-0.07) 04/23/18 20:06
--- NOTE | 2018-04-26 12:14 | Progress Note ---
Subjective - Reason for Consult Consult date: 04/26/18 Reason for consult: Psychiatry Follow-up - Chief Complaint Chief complaint: "I want to " 32-year-old male that presents to the emergency room from [facility] with complaints of nausea, vomiting, and abdominal pain. He has a PMH of substance abuse, hepatitis C, bipolar, and ADHD. Patient was admitted to [facility] for a suicide attempt via overdose (Tylenol PM). Today the patient is calm but guarded during the assessment. He stated that he have no reason to want to live because his mother is very sick. He stated that he struggles with knowing that he cannot continue to care for his mother. He continues to endorse SI's, but cannot confirm or deny a suicide plan. He denies HI's and AVH's. He denies any side effects of his medications. Mental Status Exam - Vital signs Last Vital Signs Temp 98.1 F 04/26/18 06:00 Pulse 45 L 04/26/18 06:00 Resp 18 04/26/18 06:00 BP 97/57 04/26/18 06:00 Pulse Ox 97 04/26/18 09:28 - Exam Narrative exam: MSE: Appearance: calm Behavior: regular eye contact Speech: regular rate and tone Mood: guarded, withdrawn Affect: flat Thought Process: circumstantial Thought Content: denies HI's and AVH's Motor Activity: ambulatory Cognition: A/O x 3 Insight: variable Judgment: poor Assessment and Plan Impression: Hx of Bipolar DO. Today the patient is calm, but guarded during the assessment. He endorses SI's. Recommendation/Plan: Continue 1013 with placement to inpatient psy services when medically clear. Continue Seroquel 300 mg PO HS for mood, Prozac 40 mg PO daily for depression/anxiety, and Buspar 7.5 mg PO BID for anxiety. Discussed metabolic side effects of Seroquel with the patient. Also, discussed possible suicidality/medication induced polo with patient reference Prozac.
[2018-04-26] MEDS: PERCOCET 5/325 PO PRN (19:53)
[2018-04-27] MEDS ORDERED: NACL 0.9% IR ONE (09:55)
[2018-04-27] MEDS: BUSPAR PO SCH ×2 (09:58→21:01)
[2018-04-27] MEDS: PROzac PO SCH (09:59)
[2018-04-27] MEDS: LOVENOX SUB-Q SCH (10:01)
[2018-04-27] MEDS: SENOKOT PO SCH ×2 (10:01→21:01)
[2018-04-27] MEDS: SODIUM CHLORIDE FLUSH SYRINGE 10 ML IV SCH ×2 (10:02→21:03)
--- NOTE | 2018-04-27 10:19 | Progress Note ---
Assessment and Plan Assessment and plan: Ileus. Resolved. Surgery following. SIRS. Patient with leukocytosis and tachycardia on admission. No evidence of infection at this time. Leukocytosis. Resolved. Urinary retention. Patient has marked bladder distention on CT scan as well as fullness and tenderness on exam. We will most likely discontinue Ga per surgery. Constipation. Continue with enemas and senna per surgery recommendations. Suicidal ideation. Await inpatient psych placement. Bipolar disorder. Per psychiatry. Hepatitis C. ADHD. Disposition. Anticipate discharge back to psych facility if bed available and patient voiding without any issues. History Interval history: No new issues overnight. Hospitalist Physical - Constitutional Vitals: Temp Pulse Resp BP Pulse Ox 98.0 F 47 L 16 106/57 97 04/27/18 05:36 04/27/18 05:36 04/27/18 05:36 04/27/18 05:36 04/27/18 05:36 General appearance: Present: no acute distress, well-nourished - EENT Eyes: Present: PERRL, EOM intact ENT: hearing intact, clear oral mucosa, dentition normal - Neck Neck: Present: supple, normal ROM - Respiratory Respiratory effort: normal Respiratory: bilateral: CTA - Cardiovascular Rhythm: regular Heart Sounds: Present: S1 & S2. Absent: gallop, rub - Extremities Extremities: no ischemia, No edema, Full ROM - Abdominal General gastrointestinal: soft, non-tender, non-distended, normal bowel sounds - Integumentary Integumentary: Present: clear, warm, dry - Neurologic Neurologic: CNII-XII intact, moves all extremities Results - Labs CBC & Chem 7: 04/25/18 15:17 04/25/18 15:17 Labs: Laboratory Last Values WBC 7.0 K/mm3 (4.5-11.0) 04/25/18 15:17 RBC 4.47 M/mm3 (3.65-5.03) 04/25/18 15:17 Hgb 13.5 gm/dl (11.8-15.2) D 04/25/18 15:17 Hct 39.7 % (35.5-45.6) D 04/25/18 15:17 MCV 89 fl (84-94) 04/25/18 15:17 MCH 30 pg (28-32) 04/25/18 15:17 MCHC 34 % (32-34) 04/25/18 15:17 RDW 14.0 % (13.2-15.2) 04/25/18 15:17 Plt Count 250 K/mm3 (140-440) 04/25/18 15:17 Lymph % (Auto) 27.1 % (13.4-35.0) 04/25/18 15:17 [place] % (Auto) 10.1 % (0.0-7.3) H 04/25/18 15:17 Eos % (Auto) 1.7 % (0.0-4.3) 04/25/18 15:17 Baso % (Auto) 0.5 % (0.0-1.8) 04/25/18 15:17 Lymph # 1.9 K/mm3 (1.2-5.4) 04/25/18 15:17 [place] # 0.7 K/mm3 (0.0-0.8) 04/25/18 15:17 Eos # 0.1 K/mm3 (0.0-0.4) 04/25/18 15:17 Baso # 0.0 K/mm3 (0.0-0.1) 04/25/18 15:17 Seg Neutrophils % 60.6 % (40.0-70.0) 04/25/18 15:17 Seg Neutrophils # 4.2 K/mm3 (1.8-7.7) 04/25/18 15:17 Sodium 138 mmol/L (137-145) 04/25/18 15:17 Potassium 4.2 mmol/L (3.6-5.0) 04/25/18 15:17 Chloride 100.6 mmol/L (98-107) 04/25/18 15:17 Carbon Dioxide 28 mmol/L (22-30) 04/25/18 15:17 Anion Gap 14 mmol/L 04/25/18 15:17 BUN 11 mg/dL (9-20) 04/25/18 15:17 Creatinine 0.7 mg/dL (0.8-1.5) L 04/25/18 15:17 Estimated GFR > 60 ml/min 04/25/18 15:17 BUN/Creatinine Ratio 16 % 04/25/18 15:17 Glucose 110 mg/dL (75-100) H 09/19/18 15:17 Calcium 8.7 mg/dL (8.4-10.2) 04/25/18 15:17 Total Bilirubin 0.30 mg/dL (0.1-1.2) 04/23/18 20:06 AST 91 units/L (5-40) H 04/23/18 20:06 ALT 146 units/L (7-56) H 04/23/18 20:06 Alkaline Phosphatase 99 units/L (35-129) 04/23/18 20:06 Total Protein 8.4 g/dL (6.3-8.2) H 04/23/18 20:06 Albumin 4.3 g/dL (3.9-5) 04/23/18 20:06 Albumin/Globulin Ratio 1.0 % 04/23/18 20:06 Lipase 13 units/L (13-60) 04/23/18 20:06 Urine Color [place] (Yellow) 04/23/18 22:04 Urine Turbidity Clear (Clear) 04/23/18 22:04 Urine pH 6.0 (5.0-7.0) 04/23/18 22:04 Ur Specific [place] 1.024 (1.003-1.030) 04/23/18 22:04 Urine Protein <15 mg/dl mg/dL (Negative) 04/23/18 22:04 Urine Glucose (UA) Neg mg/dL (Negative) 04/23/18 22:04 Urine Ketones Neg mg/dL (Negative) 04/23/18 22:04 Urine Blood Neg (Negative) 04/23/18 22:04 Urine Nitrite Neg (Negative) 04/23/18 22:04 Urine Bilirubin Neg (Negative) 04/23/18 22:04 Urine Urobilinogen 2.0 mg/dL (<2.0) 04/23/18 22:04 Ur Leukocyte Esterase Neg (Negative) 04/23/18 22:04 Urine WBC (Auto) < 1.0 /HPF (0.0-6.0) 04/23/18 22:04 Urine RBC (Auto) 3.0 /HPF (0.0-6.0) 04/23/18 22:04 Urine Mucus Few /HPF 04/23/18 22:04 Plasma/Serum Alcohol < 0.01 % (0-0.07) 04/23/18 20:06
[2018-04-27] MEDS: PERCOCET 5/325 PO PRN ×2 (10:46→21:01)
--- NOTE | 2018-04-27 13:34 | Progress Note ---
Subjective - Reason for Consult Consult date: 04/27/18 Reason for consult: Psychiatry Follow-up - Chief Complaint Chief complaint: "I am still sucidal" 32-year-old male that presents to the emergency room from [facility] with complaints of nausea, vomiting, and abdominal pain. He has a PMH of substance abuse, hepatitis C, bipolar, and ADHD. Patient was admitted to [facility] for a suicide attempt via overdose (Tylenol PM). Today the patient is calm and cooperative during the assessment. He stated that he is still feeling suicidal and cannot confirm or deny a suicide plan when asked. He stated, "I wish I get better soon." He denies HI's and AVH's. He denies any side effects of his medications. Mental Status Exam - Vital signs Last Vital Signs Temp 98.0 F 04/27/18 05:36 Pulse 47 L 04/27/18 05:36 Resp 16 04/27/18 05:36 BP 106/57 04/27/18 05:36 Pulse Ox 97 04/27/18 05:36 - Exam Narrative exam: MSE: Appearance: calm, cooperative Behavior: regular eye contact Speech: regular rate and tone Mood: withdrawn Affect: flat Thought Process: circumstantial Thought Content: denies HI's and AVH's Motor Activity: ambulatory Cognition: A/O x 3 Insight: variable Judgment: poor Assessment and Plan Impression: Hx of Bipolar DO. Today the patient is calm and cooperative during the assessment. He endorses SI's. Recommendation/Plan: Continue 1013 with placement to inpatient psy services. Continue Seroquel 300 mg PO HS for mood, Prozac 40 mg PO daily for depression/ anxiety, and Buspar 7.5 mg PO BID for anxiety. Discussed metabolic side effects of Seroquel with the patient. Also, discussed possible suicidality/medication induced polo with patient reference Prozac with the patient.
--- NOTE | 2018-04-27 13:55 | Progress Note ---
Assessment and Plan - Patient Problems (1) Urinary retention Current Visit: Yes Status: Resolved Plan to address problem: Issues resolved. Did well with post void residual after catheter was removed. No further eval or treatment needed. Ok to be discharged from my perspective. Will sign off. PLease call with questions. Time=10min (2) Constipation Current Visit: Yes Status: Resolved Plan to address problem: Would recommend usual things for good bowel regimen - hydration, fiber, balanced diet, etc. Can use a laxative prn. (3) Dehydration Current Visit: Yes Status: Resolved Plan to address problem: resolved. Subjective Date of service: 04/27/18 Patient Reports: Positive: feels better, tolerating a regular diet, bowel movement. Negative: nausea, vomiting Objective Vital Signs - 12hr 04/27/18 05:36 Temperature 98.0 F Pulse Rate 47 L Respiratory 16 Rate Blood Pressure 106/57 O2 Sat by Pulse 97 Oximetry - General physical appearance no distress, no pain, other (looks good) - Respiratory normal expansion, normal respiratory effort - Abdomen soft, tender (minimal in suprapubic area), not distended, not guarding, not rigid - Labs 04/25/18 15:17 04/25/18 15:17
[2018-04-28] MEDS: PROzac PO SCH (09:36)
[2018-04-28] MEDS: BUSPAR PO SCH ×2 (09:36→22:20)
[2018-04-28] MEDS: SENOKOT PO SCH ×2 (09:36→22:20)
[2018-04-28] MEDS: LOVENOX SUB-Q SCH (09:37)
[2018-04-28] MEDS: PERCOCET 5/325 PO PRN ×3 (09:37→22:21)
--- NOTE | 2018-04-28 11:20 | Progress Note ---
Assessment and Plan Assessment and plan: Ileus. Resolved. Surgery following. SIRS. Patient with leukocytosis and tachycardia on admission. No evidence of infection at this time. Leukocytosis. Resolved. Urinary retention. Patient has marked bladder distention on CT scan as well as fullness and tenderness on exam. Did well with post void residual after catheter was removed. No further eval or treatment needed. Constipation. Continue with enemas and senna per surgery recommendations. Suicidal ideation. Await inpatient psych placement. Bipolar disorder. Per psychiatry. Hepatitis C. ADHD. Disposition. Patient is medically clear for discharge. Anticipate discharge back to psych facility if bed available History Interval history: No new issues overnight. Hospitalist Physical - Constitutional Vitals: Temp Pulse Resp BP Pulse Ox 98.8 F 65 18 106/63 97 04/27/18 21:13 04/27/18 22:00 04/27/18 22:00 04/27/18 21:13 04/27/18 22:00 General appearance: Present: no acute distress, well-nourished - EENT Eyes: Present: PERRL, EOM intact ENT: hearing intact, clear oral mucosa, dentition normal - Neck Neck: Present: supple, normal ROM - Respiratory Respiratory effort: normal Respiratory: bilateral: CTA - Cardiovascular Rhythm: regular Heart Sounds: Present: S1 & S2. Absent: gallop, rub - Extremities Extremities: no ischemia, No edema, Full ROM - Abdominal General gastrointestinal: soft, non-tender, non-distended, normal bowel sounds - Integumentary Integumentary: Present: clear, warm, dry - Neurologic Neurologic: CNII-XII intact, moves all extremities Results - Labs CBC & Chem 7: 04/25/18 15:17 04/25/18 15:17 Labs: Laboratory Last Values WBC 7.0 K/mm3 (4.5-11.0) 04/25/18 15:17 RBC 4.47 M/mm3 (3.65-5.03) 04/25/18 15:17 Hgb 13.5 gm/dl (11.8-15.2) D 04/25/18 15:17 Hct 39.7 % (35.5-45.6) D 04/25/18 15:17 MCV 89 fl (84-94) 04/25/18 15:17 MCH 30 pg (28-32) 04/25/18 15:17 MCHC 34 % (32-34) 04/25/18 15:17 RDW 14.0 % (13.2-15.2) 04/25/18 15:17 Plt Count 250 K/mm3 (140-440) 04/25/18 15:17 Lymph % (Auto) 27.1 % (13.4-35.0) 04/25/18 15:17 [place] % (Auto) 10.1 % (0.0-7.3) H 04/25/18 15:17 Eos % (Auto) 1.7 % (0.0-4.3) 04/25/18 15:17 Baso % (Auto) 0.5 % (0.0-1.8) 04/25/18 15:17 Lymph # 1.9 K/mm3 (1.2-5.4) 04/25/18 15:17 [place] # 0.7 K/mm3 (0.0-0.8) 04/25/18 15:17 Eos # 0.1 K/mm3 (0.0-0.4) 04/25/18 15:17 Baso # 0.0 K/mm3 (0.0-0.1) 04/25/18 15:17 Seg Neutrophils % 60.6 % (40.0-70.0) 04/25/18 15:17 Seg Neutrophils # 4.2 K/mm3 (1.8-7.7) 04/25/18 15:17 Sodium 138 mmol/L (137-145) 04/25/18 15:17 Potassium 4.2 mmol/L (3.6-5.0) 04/25/18 15:17 Chloride 100.6 mmol/L (98-107) 04/25/18 15:17 Carbon Dioxide 28 mmol/L (22-30) 04/25/18 15:17 Anion Gap 14 mmol/L 04/25/18 15:17 BUN 11 mg/dL (9-20) 04/25/18 15:17 Creatinine 0.7 mg/dL (0.8-1.5) L 04/25/18 15:17 Estimated GFR > 60 ml/min 04/25/18 15:17 BUN/Creatinine Ratio 16 % 04/25/18 15:17 Glucose 110 mg/dL (75-100) H 04/25/18 15:17 Calcium 8.7 mg/dL (8.4-10.2) 04/25/18 15:17 Total Bilirubin 0.30 mg/dL (0.1-1.2) 04/23/18 20:06 AST 91 units/L (5-40) H 04/23/18 20:06 ALT 146 units/L (7-56) H 04/23/18 20:06 Alkaline Phosphatase 99 units/L (35-129) 04/23/18 20:06 Total Protein 8.4 g/dL (6.3-8.2) H 04/23/18 20:06 Albumin 4.3 g/dL (3.9-5) 04/23/18 20:06 Albumin/Globulin Ratio 1.0 % 04/23/18 20:06 Lipase 13 units/L (13-60) 04/23/18 20:06 Urine Color [place] (Yellow) 04/23/18 22:04 Urine Turbidity Clear (Clear) 04/23/18 22:04 Urine pH 6.0 (5.0-7.0) 04/23/18 22:04 Ur Specific [place] 1.024 (1.003-1.030) 04/23/18 22:04 Urine Protein <15 mg/dl mg/dL (Negative) 04/23/18 22:04 Urine Glucose (UA) Neg mg/dL (Negative) 04/23/18 22:04 Urine Ketones Neg mg/dL (Negative) 04/23/18 22:04 Urine Blood Neg (Negative) 04/23/18 22:04 Urine Nitrite Neg (Negative) 04/23/18 22:04 Urine Bilirubin Neg (Negative) 04/23/18 22:04 Urine Urobilinogen 2.0 mg/dL (<2.0) 04/23/18 22:04 Ur Leukocyte Esterase Neg (Negative) 04/23/18 22:04 Urine WBC (Auto) < 1.0 /HPF (0.0-6.0) 04/23/18 22:04 Urine RBC (Auto) 3.0 /HPF (0.0-6.0) 04/23/18 22:04 Urine Mucus Few /HPF 04/23/18 22:04 Plasma/Serum Alcohol < 0.01 % (0-0.07) 04/23/18 20:06
[2018-04-28] MEDS: SODIUM CHLORIDE FLUSH SYRINGE 10 ML IV SCH ×2 (13:20→22:30)
--- NOTE | 2018-04-28 19:57 | Progress Note ---
Subjective - Reason for Consult Consult date: 04/28/18 Reason for consult: follow up - Chief Complaint Chief complaint: "I just want to get my stuff." 32-year-old male that presents to the emergency room from [facility] with complaints of nausea, vomiting, and abdominal pain. He has a PMH of substance abuse, hepatitis C, bipolar, and ADHD. Patient was admitted to [facility] for a suicide attempt via overdose (Tylenol PM). He reports suicidal ideation and is frustrated about his belongings being at [place]. He is focused on getting his belongings. He will not discuss details of suicidal thoughts. MSE: Appearance: calm, cooperative Behavior: regular eye contact Speech: regular rate and tone Mood: withdrawn Affect: flat Thought Process: tangential Thought Content: suicidal ideation. no HI. no AVH Motor Activity: ambulatory Cognition: A/O x 3 Insight: variable Judgment: poor Assessment and Plan Impression: Hx of Bipolar DO. Today the patient is calm and cooperative during the assessment. He endorses SI. Recommendation/Plan: Continue 1013 with placement to inpatient psy services. Continue Seroquel 300 mg PO HS for mood, Prozac 40 mg PO daily for depression/ anxiety, and Buspar 7.5 mg PO BID for anxiety. Mental Status Exam - Vital signs Last Vital Signs Temp 98.8 F 04/28/18 17:45 Pulse 59 L 04/28/18 17:44 Resp 17 04/28/18 17:45 BP 117/79 04/28/18 17:45 Pulse Ox 98 04/28/18 17:44
[2018-04-29] MEDS: ATIVAN PO PRN (00:08)
[2018-04-29] MEDS: PERCOCET 5/325 PO PRN ×3 (08:37→21:22)
[2018-04-29] MEDS: BUSPAR PO SCH ×2 (11:18→21:22)
[2018-04-29] MEDS: SENOKOT PO SCH ×2 (11:19→21:22)
[2018-04-29] MEDS: PROzac PO SCH (11:19)
[2018-04-29] MEDS: LOVENOX SUB-Q SCH (11:20)
[2018-04-29] MEDS: SODIUM CHLORIDE FLUSH SYRINGE 10 ML IV SCH ×3 (15:02→21:24)
--- NOTE | 2018-04-29 18:13 | Progress Note ---
Subjective - Reason for Consult Consult date: 04/29/18 Reason for consult: follow up - Chief Complaint Chief complaint: "It's depressing as f___ in here." 32-year-old male that presents to the emergency room from [facility] with complaints of nausea, vomiting, and abdominal pain. He has a PMH of substance abuse, hepatitis C, bipolar, and ADHD. Patient was admitted to [facility] for a suicide attempt via overdose (Tylenol PM). He continues to report suicidal ideation and is frustrated about his belongings being at [place]. He is focused on getting his belongings. He will not discuss details of suicidal thoughts. He is tearful. MSE: Appearance: calm, cooperative Behavior: regular eye contact Speech: regular rate and tone Mood: withdrawn Affect: flat Thought Process: tangential Thought Content: suicidal ideation. no HI. no AVH Motor Activity: ambulatory Cognition: A/O x 3 Insight: variable Judgment: poor Assessment and Plan Impression: Hx of Bipolar DO. Today the patient is calm and cooperative during the assessment. He endorses SI. Recommendation/Plan: Continue 1013 with placement to inpatient psy services. Continue Seroquel 300 mg PO HS for mood, Prozac 40 mg PO daily for depression/ anxiety, and Buspar 7.5 mg PO BID for anxiety. Mental Status Exam - Vital signs Last Vital Signs Temp 97.9 F 04/29/18 17:18 Pulse 61 04/28/18 21:33 Resp 19 04/29/18 17:18 BP 114/73 04/29/18 17:18 Pulse Ox 97 04/28/18 21:33
[2018-04-30] MEDS: ATIVAN PO PRN (02:24)
[2018-04-30] MEDS: PERCOCET 5/325 PO PRN ×3 (08:00→21:44)
--- NOTE | 2018-04-30 09:21 | Progress Note ---
Assessment and Plan Assessment and plan: Ileus. Resolved. Surgery following. SIRS. Patient with leukocytosis and tachycardia on admission. No evidence of infection at this time. Leukocytosis. Resolved. Urinary retention. Patient has marked bladder distention on CT scan as well as fullness and tenderness on exam. Did well with post void residual after catheter was removed. No further eval or treatment needed. Constipation. Continue with enemas and senna per surgery recommendations. Suicidal ideation. Await inpatient psych placement. Bipolar disorder. Per psychiatry. Hepatitis C. ADHD. Disposition. Patient is medically clear for discharge. Anticipate discharge back to psych facility if bed available History Interval history: No new issues overnight. Hospitalist Physical - Constitutional Vitals: Temp Pulse Resp BP Pulse Ox 98.6 F 71 16 109/73 97 04/30/18 07:32 04/30/18 07:43 04/30/18 07:43 04/30/18 07:32 04/30/18 07:32 General appearance: Present: no acute distress, well-nourished - EENT Eyes: Present: PERRL, EOM intact ENT: hearing intact, clear oral mucosa, dentition normal - Neck Neck: Present: supple, normal ROM - Respiratory Respiratory effort: normal Respiratory: bilateral: CTA - Cardiovascular Rhythm: regular Heart Sounds: Present: S1 & S2. Absent: gallop, rub - Extremities Extremities: no ischemia, No edema, Full ROM - Abdominal General gastrointestinal: soft, non-tender, non-distended, normal bowel sounds - Integumentary Integumentary: Present: clear, warm, dry - Neurologic Neurologic: CNII-XII intact, moves all extremities Results - Labs CBC & Chem 7: 04/25/18 15:17 04/25/18 15:17 Labs: Laboratory Last Values WBC 7.0 K/mm3 (4.5-11.0) 04/25/18 15:17 RBC 4.47 M/mm3 (3.65-5.03) 04/25/18 15:17 Hgb 13.5 gm/dl (11.8-15.2) D 04/25/18 15:17 Hct 39.7 % (35.5-45.6) D 04/25/18 15:17 MCV 89 fl (84-94) 04/25/18 15:17 MCH 30 pg (28-32) 04/25/18 15:17 MCHC 34 % (32-34) 04/25/18 15:17 RDW 14.0 % (13.2-15.2) 04/25/18 15:17 Plt Count 250 K/mm3 (140-440) 04/25/18 15:17 Lymph % (Auto) 27.1 % (13.4-35.0) 04/25/18 15:17 [place] % (Auto) 10.1 % (0.0-7.3) H 04/25/18 15:17 Eos % (Auto) 1.7 % (0.0-4.3) 04/25/18 15:17 Baso % (Auto) 0.5 % (0.0-1.8) 04/25/18 15:17 Lymph # 1.9 K/mm3 (1.2-5.4) 04/25/18 15:17 [place] # 0.7 K/mm3 (0.0-0.8) 04/25/18 15:17 Eos # 0.1 K/mm3 (0.0-0.4) 04/25/18 15:17 Baso # 0.0 K/mm3 (0.0-0.1) 04/25/18 15:17 Seg Neutrophils % 60.6 % (40.0-70.0) 04/25/18 15:17 Seg Neutrophils # 4.2 K/mm3 (1.8-7.7) 04/25/18 15:17 Sodium 138 mmol/L (137-145) 04/25/18 15:17 Potassium 4.2 mmol/L (3.6-5.0) 04/25/18 15:17 Chloride 100.6 mmol/L (98-107) 04/25/18 15:17 Carbon Dioxide 28 mmol/L (22-30) 04/25/18 15:17 Anion Gap 14 mmol/L 04/25/18 15:17 BUN 11 mg/dL (9-20) 04/25/18 15:17 Creatinine 0.7 mg/dL (0.8-1.5) L 04/25/18 15:17 Estimated GFR > 60 ml/min 04/25/18 15:17 BUN/Creatinine Ratio 16 % 04/25/18 15:17 Glucose 110 mg/dL (75-100) H 04/25/18 15:17 Calcium 8.7 mg/dL (8.4-10.2) 04/25/18 15:17 Total Bilirubin 0.30 mg/dL (0.1-1.2) 04/23/18 20:06 AST 91 units/L (5-40) H 04/23/18 20:06 ALT 146 units/L (7-56) H 04/23/18 20:06 Alkaline Phosphatase 99 units/L (35-129) 04/23/18 20:06 Total Protein 8.4 g/dL (6.3-8.2) H 04/23/18 20:06 Albumin 4.3 g/dL (3.9-5) 04/23/18 20:06 Albumin/Globulin Ratio 1.0 % 04/23/18 20:06 Lipase 13 units/L (13-60) 04/23/18 20:06 Urine Color [place] (Yellow) 04/23/18 22:04 Urine Turbidity Clear (Clear) 04/23/18 22:04 Urine pH 6.0 (5.0-7.0) 04/23/18 22:04 Ur Specific [place] 1.024 (1.003-1.030) 04/23/18 22:04 Urine Protein <15 mg/dl mg/dL (Negative) 04/23/18 22:04 Urine Glucose (UA) Neg mg/dL (Negative) 04/23/18 22:04 Urine Ketones Neg mg/dL (Negative) 04/23/18 22:04 Urine Blood Neg (Negative) 04/23/18 22:04 Urine Nitrite Neg (Negative) 04/23/18 22:04 Urine Bilirubin Neg (Negative) 04/23/18 22:04 Urine Urobilinogen 2.0 mg/dL (<2.0) 04/23/18 22:04 Ur Leukocyte Esterase Neg (Negative) 04/23/18 22:04 Urine WBC (Auto) < 1.0 /HPF (0.0-6.0) 04/23/18 22:04 Urine RBC (Auto) 3.0 /HPF (0.0-6.0) 04/23/18 22:04 Urine Mucus Few /HPF 04/23/18 22:04 Plasma/Serum Alcohol < 0.01 % (0-0.07) 04/23/18 20:06
[2018-04-30] MEDS: BUSPAR PO SCH ×2 (09:55→21:44)
[2018-04-30] MEDS: PROzac PO SCH (09:56)
[2018-04-30] MEDS: SENOKOT PO SCH ×2 (10:09→21:43)
[2018-04-30] MEDS: SODIUM CHLORIDE FLUSH SYRINGE 10 ML IV SCH ×2 (10:09→21:44)
[2018-04-30] MEDS: LOVENOX SUB-Q SCH (10:09)
--- NOTE | 2018-04-30 11:57 | Progress Note ---
Subjective - Reason for Consult Consult date: 04/30/18 Reason for consult: Psychiatry Follow-up - Chief Complaint Chief complaint: "I just want to leave" 32-year-old male that presents to the emergency room from [facility] with complaints of nausea, vomiting, and abdominal pain. He has a PMH of substance abuse, hepatitis C, bipolar, and ADHD. Patient was admitted to [facility] for a suicide attempt via overdose (Tylenol PM). Today the patient is calm and cooperative during the assessment. He stated that he could have made better choices (overdose) prior to his admission to [facility]. He denies SI/HI's and AVH's. He denies any side effects of he medications. Mental Status Exam - Vital signs Last Vital Signs Temp 98.6 F 04/30/18 07:32 Pulse 71 04/30/18 07:43 Resp 16 04/30/18 07:43 BP 109/73 04/30/18 07:32 Pulse Ox 97 04/30/18 07:32 - Exam Narrative exam: MSE: Appearance: calm, cooperative Behavior: regular eye contact Speech: regular rate and tone Mood: "okay" Affect: congruent to mood Thought Process: circumstantial Thought Content: denies SI/HI's and AVH's Motor Activity: ambulatory Cognition: A/O x 3 Insight: fair Judgment: fair Assessment and Plan Impression: Hx of Bipolar DO. Today the patient is calm and cooperative during the assessment. This is the patient's first time not endorsing SI's. Recommendation/Plan: Reevaluate 1013. Continue Seroquel 300 mg PO HS for mood, Prozac 40 mg PO daily for depression/anxiety, and Buspar 7.5 mg PO BID for anxiety. Discussed metabolic side effects of Seroquel with the patient. Also, discussed possible suicidality/medication induced polo with patient reference Prozac with the patient.
[2018-05-01 07:10] LABS: Bilirubin,Urine NEG (Negative); Blood,Urine NEG (Negative); Color,Urine Yellow (Yellow); Protein,Urine <15 mg/dL mg/dL (Negative); Urobilinogen,Urine < 2.0 mg/dL (<2.0); WBC,Urine < 1.0 /HPF (0.0-6.0)
[2018-05-01 07:12] LABS: Amphetamine Screen,Urine PRESUMPTIVE NEGATIVE; Benzodiazepines Screen,Urine PRESUMPTIVE NEGATIVE; Cannabinoid Screen,Urine PRESUMPTIVE NEGATIVE; Cocaine Screen,Urine PRESUMPTIVE NEGATIVE; Methadone Screen,Urine PRESUMPTIVE NEGATIVE; Opiate Screen,Urine PRESUMPTIVE NEGATIVE
[2018-05-01] MEDS: PERCOCET 5/325 PO PRN (07:16)
--- NOTE | 2018-05-01 07:35 | Progress Note ---
Assessment and Plan Assessment and plan: Ileus. Resolved. Surgery following. SIRS. Patient with leukocytosis and tachycardia on admission. No evidence of infection at this time. Leukocytosis. Resolved. Urinary retention. Patient has marked bladder distention on CT scan as well as fullness and tenderness on exam. Did well with post void residual after catheter was removed. No further eval or treatment needed. Constipation. Continue with enemas and senna per surgery recommendations. Suicidal ideation. Await inpatient psych placement. Bipolar disorder. Per psychiatry. Hepatitis C. ADHD. Disposition. Patient is medically clear for discharge. Anticipate discharge back to psych facility if bed available Hospitalist Physical - Constitutional Vitals: Temp Pulse Resp BP Pulse Ox 98.0 F 67 17 98/53 97 05/01/18 05:40 05/01/18 05:40 05/01/18 07:16 05/01/18 05:40 05/01/18 05:40 General appearance: Present: no acute distress, well-nourished Results - Labs CBC & Chem 7: 04/25/18 15:17 04/25/18 15:17 Labs: Laboratory Last Values WBC 7.0 K/mm3 (4.5-11.0) 04/25/18 15:17 RBC 4.47 M/mm3 (3.65-5.03) 04/25/18 15:17 Hgb 13.5 gm/dl (11.8-15.2) D 04/25/18 15:17 Hct 39.7 % (35.5-45.6) D 04/25/18 15:17 MCV 89 fl (84-94) 04/25/18 15:17 MCH 30 pg (28-32) 04/25/18 15:17 MCHC 34 % (32-34) 04/25/18 15:17 RDW 14.0 % (13.2-15.2) 04/25/18 15:17 Plt Count 250 K/mm3 (140-440) 04/25/18 15:17 Lymph % (Auto) 27.1 % (13.4-35.0) 04/25/18 15:17 [place] % (Auto) 10.1 % (0.0-7.3) H 04/25/18 15:17 Eos % (Auto) 1.7 % (0.0-4.3) 04/25/18 15:17 Baso % (Auto) 0.5 % (0.0-1.8) 04/25/18 15:17 Lymph # 1.9 K/mm3 (1.2-5.4) 04/25/18 15:17 [place] # 0.7 K/mm3 (0.0-0.8) 04/25/18 15:17 Eos # 0.1 K/mm3 (0.0-0.4) 04/25/18 15:17 Baso # 0.0 K/mm3 (0.0-0.1) 04/25/18 15:17 Seg Neutrophils % 60.6 % (40.0-70.0) 04/25/18 15:17 Seg Neutrophils # 4.2 K/mm3 (1.8-7.7) 04/25/18 15:17 Sodium 138 mmol/L (137-145) 04/25/18 15:17 Potassium 4.2 mmol/L (3.6-5.0) 04/25/18 15:17 Chloride 100.6 mmol/L (98-107) 04/25/18 15:17 Carbon Dioxide 28 mmol/L (22-30) 04/25/18 15:17 Anion Gap 14 mmol/L 04/25/18 15:17 BUN 11 mg/dL (9-20) 04/25/18 15:17 Creatinine 0.7 mg/dL (0.8-1.5) L 04/25/18 15:17 Estimated GFR > 60 ml/min 04/25/18 15:17 BUN/Creatinine Ratio 16 % 04/25/18 15:17 Glucose 110 mg/dL (75-100) H 04/25/18 15:17 Calcium 8.7 mg/dL (8.4-10.2) 04/25/18 15:17 Total Bilirubin 0.30 mg/dL (0.1-1.2) 04/23/18 20:06 AST 91 units/L (5-40) H 04/23/18 20:06 ALT 146 units/L (7-56) H 04/23/18 20:06 Alkaline Phosphatase 99 units/L (35-129) 04/23/18 20:06 Total Protein 8.4 g/dL (6.3-8.2) H 04/23/18 20:06 Albumin 4.3 g/dL (3.9-5) 04/23/18 20:06 Albumin/Globulin Ratio 1.0 % 04/23/18 20:06 Lipase 13 units/L (13-60) 04/23/18 20:06 Urine Color Yellow (Yellow) 05/01/18 01:02 Urine Turbidity Clear (Clear) 05/01/18 01:02 Urine pH 6.0 (5.0-7.0) 05/01/18 01:02 Ur Specific [place] 1.020 (1.003-1.030) 05/01/18 01:02 Urine Protein <15 mg/dl mg/dL (Negative) 05/01/18 01:02 Urine Glucose (UA) Neg mg/dL (Negative) 05/01/18 01:02 Urine Ketones Neg mg/dL (Negative) 05/01/18 01:02 Urine Blood Neg (Negative) 05/01/18 01:02 Urine Nitrite Neg (Negative) 05/01/18 01:02 Urine Bilirubin Neg (Negative) 05/01/18 01:02 Urine Urobilinogen < 2.0 mg/dL (<2.0) 05/01/18 01:02 Ur Leukocyte Esterase Neg (Negative) 05/01/18 01:02 Urine WBC (Auto) < 1.0 /HPF (0.0-6.0) 05/01/18 01:02 Urine RBC (Auto) 1.0 /HPF (0.0-6.0) 05/01/18 01:02 Urine Mucus Few /HPF 04/23/18 22:04 Urine Opiates Screen Presumptive negative 05/01/18 00:55 Urine Methadone Screen Presumptive negative 05/01/18 00:55 Ur Barbiturates Screen Presumptive negative 05/01/18 00:55 Ur Phencyclidine Scrn Presumptive negative 05/01/18 00:55 Ur Amphetamines Screen Presumptive negative 05/01/18 00:55 U Benzodiazepines Scrn Presumptive negative 05/01/18 00:55 Urine Cocaine Screen Presumptive negative 05/01/18 00:55 U Marijuana (THC) Screen Presumptive negative 05/01/18 00:55 Drugs of Abuse Note Disclamer 05/01/18 00:55 Plasma/Serum Alcohol < 0.01 % (0-0.07) 04/23/18 20:06
[2018-05-01 08:35] LABS: Basophils # (Auto) 0.1 K/mm3 (0.0-0.1); Basophils % (Auto) 0.5 % (0.0-1.8); Eosinophils # (Auto) 0.1 K/mm3 (0.0-0.4); Eosinophils % (Auto) 0.8 % (0.0-4.3); Hematocrit 48.7 % (35.5-45.6); Hemoglobin 16.3 gm/dl (11.8-15.2); Lymphocytes # (Auto) 2.2 K/mm3 (1.2-5.4); Lymphocytes % (Auto) 17.8 % (13.4-35.0); Mean Corpuscular HGB Conc 34 % (32-34); Mean Corpuscular Hemoglobin 30 pg (28-32); Mean Corpuscular Volume 89 fl (84-94); Monocytes # (Auto) 0.8 K/mm3 (0.0-0.8); Monocytes % (Auto) 6.3 % (0.0-7.3); Platelet Count 392 K/mm3 (140-440); Red Blood Count 5.48 M/mm3 (3.65-5.03)
[2018-05-01 09:01] LABS: Alanine Aminotransferase 105 units/L (7-56); Albumin 4.8 g/dL (3.9-5); BUN/Creatinine Ratio 17; Blood Urea Nitrogen 15 mg/dL (9-20); Calcium 10.3 mg/dL (8.4-10.2); Hemolysis Index 32
[2018-05-01] MEDS: BUSPAR PO SCH (10:06)
[2018-05-01] MEDS: PROzac PO SCH (10:33)
[2018-05-01] MEDS: LOVENOX SUB-Q SCH (10:33)
[2018-05-01] MEDS: ATIVAN PO PRN (10:33)
[2018-05-01] MEDS: SENOKOT PO SCH (10:33)
[2018-05-01] MEDS: SODIUM CHLORIDE FLUSH SYRINGE 10 ML IV SCH (10:36)
--- NOTE | 2018-05-01 13:04 | Progress Note ---
Subjective - Reason for Consult Consult date: 05/01/18 Reason for consult: Psychiatry Follow-up - Chief Complaint Chief complaint: "I don't know what's wrong with me" 32-year-old male that presents to the emergency room from [facility] with complaints of nausea, vomiting, and abdominal pain. He has a PMH of substance abuse, hepatitis C, bipolar, and ADHD. Patient was admitted to [facility] for a suicide attempt via overdose (Tylenol PM). Today the patient is calm and cooperative, but withdrawn during the assessment. He was asked about being suicidal, he stated, "I don't know." He stated that he don't know what's wrong with him "mentally." He denies HI's and AVH's. He denies any side effects of his medications. Mental Status Exam - Vital signs Last Vital Signs Temp 98.0 F 05/01/18 05:40 Pulse 67 05/01/18 05:40 Resp 16 05/01/18 10:00 BP 98/53 05/01/18 05:40 Pulse Ox 97 05/01/18 05:40 - Exam Narrative exam: MSE: Appearance: calm, cooperative Behavior: regular eye contact Speech: regular rate and tone Mood: withdrawn Affect: congruent to mood Thought Process: circumstantial Thought Content: denies HI's and AVH's Motor Activity: ambulatory Cognition: A/O x 3 Insight: variable Judgment: variable Assessment and Plan Impression: Hx of Bipolar DO. Today the patient is calm and cooperative, but withdrawn during the assessment. The patient cannot confirm or deny SI's. Recommendation/Plan: Continue 10 with pending placement to [facility]. Continue Seroquel 300 mg PO HS for mood, Prozac 40 mg PO daily for depression/ anxiety, and Buspar 7.5 mg PO BID for anxiety. Discussed metabolic side effects of Seroquel with the patient. Also, discussed possible suicidality/medication induced polo with patient reference Prozac with the patient.
[2018-05-01 17:04] VITALS: BP 116/79
--- NOTE | 2018-05-01 17:51 | Discharge Summary ---
Providers - Providers Date of Admission: 04/24/18 00:08 Date of discharge: 05/01/18 Attending physician: JOAN AMBROSIO 04/23/18 23:16 Consult to Physician [CONS] Stat Comment: Consulting Provider: ESE [facility] Physician Instructions: Reason For Exam: abd pain, bowel illeus 04/24/18 09:02 psychiatry consult [Consult to Mental Health] [CONS] Routine Reason For Exam: pt [address] consult to:: psy consult Notified:: no 04/24/18 12:23 psychiatry consult [Consult to Mental Health] [CONS] Routine Reason For Exam: suicide ideation Place consult to:: Notified:: DARLEEN Phone number called:: [phone] Was contact made?: Yes If yes, spoke with:: DARLEEN Time called:: 13:34 Primary care physician: NITHIN SCHWARTZ MD Hospitalization Condition: Fair Disposition: DC/[place]-[id number] PSY HOSP/PSY UNIT Time spent for discharge: 32 min Core Measure Documentation - Palliative Care Palliative Care/ Comfort Measures: Not Applicable - Core Measures Any of the following diagnoses?: none Exam - Constitutional Vitals: Temp Pulse Resp BP Pulse Ox 98.0 F 67 16 98/53 97 05/01/18 05:40 05/01/18 05:40 05/01/18 10:00 05/01/18 05:40 05/01/18 05:40 General appearance: Present: no acute distress, well-nourished - EENT Eyes: Present: PERRL, EOM intact - Neck Neck: Present: supple, normal ROM Plan Activity: advance as tolerated Diet: regular Additional Instructions: DC and transfer to [facility] facility Follow up with: PRIMARY CAREMD [Primary Care Provider] - 3-5 Days
== END 2018-05-01 19:18 | DRG 389 ==
LOC: ED 18:37 → 3A 04-24 00:08
PROVIDERS: ADMIT Internal Medicine; ATTEND Internal Medicine
DX: K56.7 Ileus, unspecified (principal); R65.10 Systemic inflammatory response syndrome (SIRS) of non-infectious origin without acute organ dysfunction; B19.20 Unspecified viral hepatitis C without hepatic coma; F90.9 Attention-deficit hyperactivity disorder, unspecified type; F31.9 Bipolar disorder, unspecified; F17.210 Nicotine dependence, cigarettes, uncomplicated; F15.10 Other stimulant abuse, uncomplicated; D72.828 Other elevated white blood cell count; F43.9 Reaction to severe stress, unspecified; F10.10 Alcohol abuse, uncomplicated; Y90.0 Blood alcohol level of less than 20 mg/100 ml; R33.9 Retention of urine, unspecified; K59.00 Constipation, unspecified; E86.0 Dehydration; F11.10 Opioid abuse, uncomplicated; K21.9 Gastro-esophageal reflux disease without esophagitis; Z88.0 Allergy status to penicillin; Z82.49 Family history of ischemic heart disease and other diseases of the circulatory system
CPT/HCPCS: 36415; 74018; 74177; 76700; 80048; 80053; 80307; 80320; 81001; 83690; 85025; 96374; 96375; G0480; J1200; J1650; J2405; J3010; J7030; Q9967